=== PATIENT | female | born 1975 | race Caucasian/White ===

== ENCOUNTER 2017-01-27 16:37 | Observation (INO) | payer BC ==
[~2017-01-27] VITALS: Ht 167.6 cm; Wt 106.3 kg
[~2017-01-27 16:37] MED LIST: KLONOPIN1 MG PO; PROZAC10 MG PO; TRAZODONE HCL100 MG PO
[2017-01-27 17:36] LABS: HEMATOCRIT 41.4 % (36.0-46.0); MCHC 34.1 G/DL (30.0-36.0); MCV 94.1 FL (83-99); MEAN PLAT.VOLUME 8.3 uM^3 (9.5-12.4); PLATELET COUNT 218 K/uL (156-360); RBC DIS.WIDTH-CV 13.7 % (11.8-14.6); RBC DIS.WIDTH-SD 46.6 % (39-53); WHITE BLOOD COUNT 7.7 K/uL (4.1-10.2)
[2017-01-27 17:48] LABS: CHLORIDE 100 mEq/L (99-109); POTASSIUM 3.6 mEq/L (3.7-5.4)
[2017-01-27 17:49] LABS: SODIUM 139 mEq/L (136-147)
[2017-01-27 17:50] LABS: GLUCOSE 97 mg/dL (70-99)
[2017-01-27 17:51] LABS: ANION GAP 11 MEQ/L (2-14)
[2017-01-27 17:55] LABS: UREA NITROGEN (BUN) 19 mg/dL (9-23)
[2017-01-27 17:56] LABS: GFR ESTIMATE (CALCULATED) 53 mL/min/
[2017-01-27 18:36] LABS: ADD MIUA? NO; BILIRUBIN NEGATIVE; BLOOD NEGATIVE; COLOR YELLOW ((YELLOW)); GLUCOSE (STRIP) NEGATIVE; KETONES NEGATIVE; LEUKOCYTES NEGATIVE; NITRITE NEGATIVE; PROTEIN (STRIP) NEGATIVE; SPECIFIC GRAVITY 1.016 (1.000-1.030); UCUL ADDED? NO; UROBILINOGEN 0.2 MG/DL (0.2-1.0)
[2017-01-27] MEDS ORDERED: CYMBALTA60 MG PO (21:30)
[2017-01-27] MEDS ORDERED: VALSARTAN-HCTZ1 EAC4 PO (21:30)
[2017-01-27] MEDS ORDERED: TRAMADOL HCL E300 M1 PO (21:31)
[2017-01-27] MEDS ORDERED: CRESTOR10 MG PO (21:32)
[2017-01-27] MEDS ORDERED: PERCOCET 5/31 TABLET PO (21:32)
[2017-01-27] MEDS ORDERED: TOPAMAX50 MG PO (21:32)
[2017-01-27] MEDS ORDERED: COLACE100 MG PO (21:33)
[2017-01-27] MEDS ORDERED: IMITREX100 MG PO (21:33)
[2017-01-27 22:06] LABS: TROP-I INTERPRETATION NEGATIVE; TROPONIN-I < 0.01 ng/mL (0.0-0.30)
[2017-01-28 00:27] LABS: SERUM ETHYL ALCOHOL < 10 mg/dL
[2017-01-28 01:45] VITALS: BP 102/50
[2017-01-28 04:00] VITALS: BP 98/58
[2017-01-28 07:47] VITALS: BP 95/54
[2017-01-28 08:19] LABS: ALKALINE PHOSPHATASE 53 IU/L (3-129); ANION GAP 7 MEQ/L (2-14); CHLORIDE 107 MEQ/L (99-109); GFR ESTIMATE (CALCULATED) > 59 mL/min/; GLUCOSE 78 mg/dL (70-99); MAGNESIUM 2.2 mg/dl (1.3-2.7); POTASSIUM 3.8 MEQ/L (3.7-5.4); SAMPLE HEMOLYSIS CHECK 1; SAMPLE ICTERIC CHECK 0; SAMPLE LIPEMIA CHECK 0; SODIUM 141 MEQ/L (136-147); TOTAL BILIRUBIN 0.4 MG/DL (0.0-1.0); UREA NITROGEN (BUN) 13 mg/dL (9-23)
[2017-01-28 10:44] LABS: AMPHETAMINES QUANT VALUE 0 NG/ML; BARBITUATES QUANT VALUE 0 NG/ML; BENZODIAZEPINES, URINE SCREEN POSITIVE (200 ng/mL); OPIATES QUANTITATIVE VALUE 0 NG/ML; PHENCYCLIDINE QUANT VALUE 0 NG/ML
[2017-01-28 11:03] VITALS: BP 89/54
[2017-01-28 12:41] VITALS: BP 97/52
== END 2017-01-28 13:38 | disposition home or self-care (01) ==
LOC: EME 16:37 → EDOF 01-28 00:02 → 5WEST 01-28 01:27
PROVIDERS: Emergency Medicine; Physician Assistant Medical
DX: N17.9 Acute kidney failure, unspecified (principal); E86.0 Dehydration; I95.9 Hypotension, unspecified; F32.9 Major depressive disorder, single episode, unspecified; F41.0 Panic disorder [episodic paroxysmal anxiety]; F12.90 Cannabis use, unspecified, uncomplicated; I10 Essential (primary) hypertension; E78.5 Hyperlipidemia, unspecified; F17.200 Nicotine dependence, unspecified, uncomplicated; G89.29 Other chronic pain; M54.5 Low back pain; E66.9 Obesity, unspecified; Z68.37 Body mass index [BMI] 37.0-37.9, adult
CPT/HCPCS: 80048; 80053; 80306 90; 81003; 83735; 84100; 84484; 85027; 93005; 99281; 99285; G0378; G0480; J3480; J7030